=== PATIENT | female | born 1970 | race Caucasian/White ===

== ENCOUNTER 2021-04-13 03:26 | Observation (INO) | payer OTHER ==
[2021-04-13 04:57] LABS: BASO % 0.5 % (0-2.0); EOS % 1.6 % (0-4.5); HEMATOCRIT 36.2 % (32.4-45.2); HEMOGLOBIN 12.3 GM/dL (10.7-15.3); LYMPH % 33.7 % (8-40); MCHC 33.9 g/dl (32.0-36.0); MEAN CELL VOLUME 82.7 fl (80-96); MEAN PLT VOLUME 9.2 fl (7.5-11.1); MONO % 9.7 % (3.8-10.2); NEUT % 54.5 % (42.8-82.8); PLATELET COUNT 258 10^3/uL (134-434); RBC 4.38 M/mm3 (3.60-5.2); RDW 13.3 % (11.6-15.6); WHITE BLOOD COUNT 6.4 K/mm3 (4.0-10.0)
[2021-04-13 05:06] LABS: INR 1.06 (0.83-1.09); PROTHROMBIN TIME (PATIENT) 12.2 SEC (9.7-13.0)
[2021-04-13 05:08] LABS: ACTIVATED PTT 34.1 SECONDS (25.2-36.5)
[2021-04-13 05:19] LABS: CALCIUM 9.4 mg/dL (8.5-10.1)
[2021-04-13 05:20] LABS: ALBUMIN 3.8 g/dl (3.4-5.0)
[2021-04-13 05:21] LABS: BLOOD UREA NITROGEN 7.1 mg/dL (7-18)
[2021-04-13 05:23] LABS: CREATININE 0.5 mg/dL (0.55-1.3)
[2021-04-13 05:26] LABS: BILIRUBIN,TOTAL 0.6 mg/dL (0.2-1)
[2021-04-13] MEDS ORDERED: ATORVASTATIN CA 80 MG TABLET (FP) PO ONE (05:29)
[2021-04-13] MEDS ORDERED: ATORVASTATIN CA 80 MG TABLET (FP) ONE (05:37)
[2021-04-13] MEDS ORDERED: ONDANSETRON 4 MG/2 ML VIAL IVPUSH ONE (05:40)
[2021-04-13] MEDS ORDERED: ONDANSETRON 4 MG/2 ML VIAL ONE (05:41)
[2021-04-13 05:47] LABS: EPI CELLS 18 /uL (0-25.1); HYALINE CASTS 0 /uL (0-3.1); PH,URINE >= 9.0 (5.0-8.0); URINE APPEARANCE CLEAR; URINE BACTERIA 42 /uL (0-1359); URINE BILIRUBIN NEGATIVE (NEGATIVE); URINE COLOR YELLOW; URINE GLUCOSE (UA) NEGATIVE (NEGATIVE); URINE KETONE NEGATIVE (NEGATIVE); URINE LEUK ESTERASE 1+ (NEGATIVE); URINE NITRITE NEGATIVE (NEGATIVE); URINE PROTEIN NEGATIVE (NEGATIVE); URINE RBC 3 /uL (0-23.9); URINE UROBILINOGEN 0.2 mg/dL (0.2-1.0); URINE WBC 36 /uL (0-25.8)
[2021-04-13] MEDS ORDERED: ONDANSETRON 4 MG/2 ML VIAL IVPUSH PRN (08:51)
[2021-04-13 14:36] VITALS: BMI 21.6
[2021-04-13] MEDS: PANTOPRAZOLE SODIUM 40 MG VIAL IVPUSH SCH (15:53)
[2021-04-13 16:18] LABS: CALCIUM 9.6 mg/dL (8.5-10.1)
[2021-04-13 16:19] LABS: ALBUMIN 3.6 g/dl (3.4-5.0); BLOOD UREA NITROGEN 7.5 mg/dL (7-18)
[2021-04-13 16:22] LABS: CREATININE 0.5 mg/dL (0.55-1.3)
[2021-04-13 16:23] LABS: TOT PROT 6.9 g/dl (6.4-8.2)
[2021-04-13] MEDS: ENOXAPARIN NA (PORCINE) 40 MG/0.4 ML DISP.SYRIN SQ SCH (21:39)
[2021-04-14 07:42] LABS: BASO % 0.5 % (0-2.0); HEMATOCRIT 35.1 % (32.4-45.2); HEMOGLOBIN 11.8 GM/dL (10.7-15.3); LYMPH % 35.8 % (8-40); MCH 27.7 pg (25.7-33.7); MCHC 33.7 g/dl (32.0-36.0); MEAN CELL VOLUME 82.3 fl (80-96); MEAN PLT VOLUME 9.1 fl (7.5-11.1); MONO % 11.4 % (3.8-10.2); NEUT % 48.3 % (42.8-82.8); PLATELET COUNT 239 10^3/uL (134-434); RBC 4.27 M/mm3 (3.60-5.2); RDW 13.7 % (11.6-15.6); WHITE BLOOD COUNT 4.4 K/mm3 (4.0-10.0)
[2021-04-14 08:07] LABS: ALBUMIN 3.4 g/dl (3.4-5.0); BLOOD UREA NITROGEN 13.5 mg/dL (7-18); CALCIUM 9.2 mg/dL (8.5-10.1); MAGNESIUM 2.5 mg/dL (1.8-2.4)
[2021-04-14 08:10] LABS: CREATININE 0.6 mg/dL (0.55-1.3); PHOSPHOROUS 4.1 mg/dL (2.5-4.9)
[2021-04-14 08:12] LABS: BILIRUBIN,TOTAL 0.7 mg/dL (0.2-1); TOT PROT 6.4 g/dl (6.4-8.2)
[2021-04-14] MEDS: ENOXAPARIN NA (PORCINE) 40 MG/0.4 ML DISP.SYRIN SQ SCH (09:30)
[2021-04-14] MEDS: PANTOPRAZOLE SODIUM 40 MG VIAL IVPUSH SCH (09:30)
[2021-04-14] MEDS: CLOPIDOGREL BISULFATE 75 MG TABLET (FP) PO SCH (09:30)
[2021-04-14] MEDS ORDERED: ATORVASTATIN CA 40 MG TABLET (FP) PO SCH (22:00)
[2021-04-15] MEDS ORDERED: DOCUSATE SODIUM 100 MG CAPSULE (FP) PO PRN (08:23)
[2021-04-15 08:43] LABS: ALBUMIN 3.8 g/dl (3.4-5.0); BLOOD UREA NITROGEN 13.8 mg/dL (7-18); CALCIUM 9.7 mg/dL (8.5-10.1)
[2021-04-15 08:46] LABS: CREATININE 0.7 mg/dL (0.55-1.3)
[2021-04-15 08:48] LABS: BILIRUBIN,TOTAL 0.4 mg/dL (0.2-1); TOT PROT 7.1 g/dl (6.4-8.2)
[2021-04-15 09:07] LABS: HEMATOCRIT 38.4 % (32.4-45.2); HEMOGLOBIN 12.5 GM/dL (10.7-15.3); MCH 27.2 pg (25.7-33.7); MCHC 32.6 g/dl (32.0-36.0); MEAN CELL VOLUME 83.5 fl (80-96); MEAN PLT VOLUME 9.7 fl (7.5-11.1); PLATELET COUNT 270 10^3/uL (134-434); RBC 4.59 M/mm3 (3.60-5.2); RDW 13.4 % (11.6-15.6)
[2021-04-15] MEDS: PANTOPRAZOLE SODIUM 40 MG VIAL IVPUSH SCH (10:03)
[2021-04-15] MEDS: CLOPIDOGREL BISULFATE 75 MG TABLET (FP) PO SCH (10:03)
[2021-04-15] MEDS: ENOXAPARIN NA (PORCINE) 40 MG/0.4 ML DISP.SYRIN SQ SCH (10:03)
[2021-04-15 11:37] LABS: HEPATITIS B SURFACE AG MATERN NON-REACTIVE (NONREACTIVE)
[2021-04-15 14:55] VITALS: BP 112/79; PULSE 67; TEMP 98.7
[2021-04-15] MEDS ORDERED: ATORVASTATIN CA 40 MG TABLET (FP) PO SCH (22:00)
[2021-04-16 22:06] LABS: FIBROSIS SCORE. 0.24 (0.00-0.21); HCV ALPHA 2 MACRO CHART 181 mg/dL (110-276); NECRO.INFLAM ACT.SCORE 0.88 (0.00-0.17); NECROINFLAM. ACTIVITY GRADE A3-Severe activity (.)
== END 2021-04-15 15:53 | disposition home or self-care (01) ==
LOC: JER 03:26 → INTOOBSV 05:28 → JERBED 05:28 → UNDOADMOB 05:28 → JERBED 08:46 → J4S 12:33
PROVIDERS: ADMIT Hospitalist; ATTEND Internal Medicine
PROC: 3E023GC Introduction of Other Therapeutic Substance into Muscle, Percutaneous Approach (ICD-10-PCS; principal; 2021-04-13)
PROC: 3E033GC Introduction of Other Therapeutic Substance into Peripheral Vein, Percutaneous Approach (ICD-10-PCS; 2021-04-13)
DX: I63.81 Other cerebral infarction due to occlusion or stenosis of small artery (principal); R41.82 Altered mental status, unspecified; R47.81 Slurred speech; E03.9 Hypothyroidism, unspecified; K25.9 Gastric ulcer, unspecified as acute or chronic, without hemorrhage or perforation; I10 Essential (primary) hypertension; Z29.9 Encounter for prophylactic measures, unspecified; R79.89 Other specified abnormal findings of blood chemistry
CPT/HCPCS: 36415; 70450-TC; 70496-TC; 70498-TC; 70551-TC; 71250-TC; 74177-TC; 76705-TC; 80053; 80061; 81003; 82172; 82962; 82977; 83010; 83036; 83690; 83735; 83883; 84100; 84443; 84460; 84484; 85025; 85027; 85610; 85730; 86705; 86708; 86709; 86850; 86900; 86901; 87086; 87340; 87517; 93005; 93010; 93306-TC; 93880-TC; 96372; 96374; 96375; 97116-GP; 97161-GP; 99285-25; C9803; G0378; Q9967; U0003; U0005